=== PATIENT | female | born 1990 | race African-American/Black ===

== ENCOUNTER → 2017-06-03 | Outpatient (CLI) | payer OTHER ==
[~2017-06-03] MED LIST: ACETAMINOPHEN GT; ACETAMINOPHEN PEG; ALBUTEROL MININEB; ALBUTEROL MININEB IH; ALBUTEROL MININEB NEB; AMOXICILLIN PEG; APAP325 MG PEG; ATROVENT NEB; AUGMENTIN GT; BACID; BACLOFEN10 MG GT; BACLOFEN10 MG PEG; BACLOFEN10 MG PO; BACLOFEN20 M1; BACLOFEN20 MG PO; BACTROBAN22 GM; BAZA PROTECT CR57 GM; CALCIUM 5001 TAB; CALCIUM 5001 TAB PEG; CALCIUM CA500 MG/5 M GT; CALCIUM CARB GT; CALCIUM CARBONATE GT; CALCIUM500 MG GT; CARMEX; CARMEX TOP; CENTRUM240 ML PO; CEROVITE GT; CEROVITE PEG; CEROVITE SILVER1 TA1; CEROVITE SILVER1 TA1 GT; CETAPHIL240 ML TOP; CETIRIZINE HCL10 MG GT; CLARITIN10 MG PEG; CLARITIN5 MG/5 ML GT; CLARITIN5 MG/5 ML PEG; COUMADIN3 MG PEG; COUMADIN4 MG PO; COUMADIN5 MG; COUMADIN5 MG PEG; CYANOCOBAL1000 MCG/M IM; CYANOCOBAL1000 MCG/M INJ; DAILY VITAMIN PEG; DIASTAT ACUDIAL1 KIT; DIASTAT ACUDIAL1 KIT PR; DIASTAT ACUDIAL1 KIT RC; DIASTAT10 MG PR; DIFLUCAN GT; DOCUSATE LIQUID; E.E.S. 200200 MG/5 M PEG; EUCERIN TOP; FLEET ENEMA RC; FLEET ENEMA133 M1; FLONASE 0.05% N16 G1; FLONASE16 GM; GAS RELIEF PEG; GAS-X125 M1 PO; GOLYTELY4000 ML GT; GRANULEX SPR113.4 GM; GRANULEX SPR113.4 GM TOP; KEPPRA GT; KEPPRA100 MG/ML; KEPPRA100 MG/ML GT; KEPPRA100 MG/ML PEG; KEPPRA750 MG; KEPPRA750 MG GT; KEPPRA750 MG PEG; LACTULOSE10 G/15 M1 GT; LAMICTAL100 MG GT; LAMICTAL100 MG PO; LORATADINE 5 MG/5 ML GT; LORATADINE5 MG/5 ML; LOVENOX SUBQ; LOVENOX30 MG/0.3 SUBQ; METOCLOPRAM PO; MILK OF MAGNESIA PO; MIRALAX255 GM GT; MIRALAX255 GM PEG; MUCOMYST200 MG/ML INJ; MULTI-VITAMIN1 EAC1 GT; MYLANTA125 MG GT; MYLANTA400 MG GT; MYTAB; NITROFURANTOIN100 M3 GT; NITROFURANTOIN50 M1 PO; PAMPRIN MULTI-S1 TAB GT; PATADAY2.5 ML OU; PERIDEX480 ML PO; PHAZYME PEG; PHAZYME125 MG GT; PHENOBARB; PHENOBARB GT; PHENOBARB PEG; PHENOBARBI20 MG/5 M1; PHENOBARBI20 MG/5 M1 FT; PHENOBARBI20 MG/5 M1 GT; PHENOBARBI20 MG/5 M1 PEG; PHENOBARBI20 MG/5 ML GT; PHENOBARBI20 MG/5 ML PEG; PHENOBARBITAL GT; PIPERACIL-TA3.375 GM IV; POLYETHYLENE G500 G1; PROBIOTIC1 EACH GT; PROBIOTIC1 EACH PO; PROVENTIL0.83 MG/ML; PROVENTIL17 GM; Q PAP GT; Q-PAP160 MG/51; REGLAN5 MG PEG; ROBITUSSIN-DM120 ML PEG; SENNA8.8 MG/5 M PEG; TOBRAMYCIN S40 MG/M1 IV; TRIPLE ANTIBI1 UDPK1 TOP; TYLENOL100 MG/ML FT; TYLENOL325 M1 GT; VITAMIN D1000 UNI1 GT; VITAMIN D2000 UNI1 GT; XOPENEX1.25 MG/0. NEB; ZYVOX600 MG PO; [UNRECOGNIZED DRUG - OTHER] GT; [UNRECOGNIZED DRUG - OTHER] GT; [UNRECOGNIZED DRUG - OTHER] PEG; [UNRECOGNIZED DRUG - OTHER] PO
== END | disposition home or self-care (01) ==
LOC: CSSDAY 12:53
DX: M81.8 Other osteoporosis without current pathological fracture (principal)
CPT/HCPCS: 96372; J0897